=== PATIENT | male | born 1990 | race Caucasian/White ===

== ENCOUNTER 2022-02-24 18:45 | Inpatient (IN) | payer MEDICAID, SELFPAY ==
[2022-02-24 18:48] VITALS: BP 135/87; PULSE 87; RESP 16; TEMP 36.1; O2SAT 100; BMI 25.6
--- NOTE | 2022-02-24 19:08 | EDS_ITS ---
HPI History of Present Illness Chief Complaint: Substance Abuse Informant: patient Narrative Narrative: 31-year-old male presenting to the emergency room requesting detox from heroin. Patient is a daily snorer. Between him and his significant other use about a gram a day. He has been using for about the past 6 months and before that was previously clean for 6 months. He states that he has no pending legal issues and is trying to get his life in order including get into his old job back but he needs to be sober. He states that he has been working with an outpatient clinic but whenever he tries to fully get off of heroin he develops abdominal pain makes him feel constipated and makes him use again. [facility] Medical History (Updated 02/24/22 @ 19:[address] Hussain Watters DO) Heroin addiction Home Medications buprenorphine-naloxone [Suboxone] 1.5 tab SUBLINGUAL DAILY 02/24/22 [History Last Taken Unknown] gabapentin 800 mg PO BID 02/24/22 [History Last Taken Unknown] Allergy/AdvReac Type Severity Reaction Status Date / Time No Known Allergies Allergy Verified 02/24/22 18:46 no surgical history Social History (Updated 02/24/22 @ 19:[address] Hussain Watters DO) current gender identity: male substance use type: heroin ROS ROS ED Constitutional Constitutional ED: Denies chills, fever(s) or weight loss Eyes Eyes: Denies change in vision or diplopia ENT ENT ED: Denies ear pain, rhinorrhea or sore throat Cardiovascular Cardiovascular: Denies chest pain, orthopnea, palpitations or racing heartbeat Respiratory/Chest Respiratory/Chest: Denies cough, dyspnea or orthopnea Gastrointestinal Gastrointestinal: Reports abdominal pain; Denies diarrhea, nausea or vomiting Genitourinary Genitourinary ED: Denies dysuria, hematuria or urinary frequency Musculoskeletal Musculoskeletal: Denies arthralgias or myalgias Integumentary Denies abscess or rash Neurologic Neurologic: Denies headache(s) or weakness Psychiatric Psychiatric: Denies anxiety, depression, suicidal ideation or suicidal thoughts Endocrine Endocrinology: Denies polydipsia, polyphagia or polyuria Allergic/Immunologic Allergic/Immunologic ED: Denies mouth swelling, tongue swelling or urticaria EXAM Physical Exam Const Vital Signs: 02/24/22 18:48 Temperature 97.0 F L Temperature Source Temporal Pulse Rate 87 Respiratory Rate 16 Blood Pressure 135/87 H Blood Pressure Mean 103 Pulse Ox 100 Oxygen Delivery Method Room Air Positive well nourished and well developed General Appearance ED: well developed HEENT Reports normocephalic, head/scalp atraumatic, TM's clear and moist mucous membranes Negative for trauma Tympanic Membrane ED: Yes TM's clear Eyes PERRL and EOMs intact bilaterally Neck no lymphadenopathy, supple and no JVD Resp normal respiratory effort and clear to auscultation bilaterally Cardio regular rate, regular rhythm and no murmurs GI normal to inspection, nondistended, normoactive bowel sounds and non-tender Palpation: soft Back/Spine no CVA tenderness and normal ROM Extremity normal to inspection General Extremety ED: Negative for edema General Extremity: Negative for edema Neuro oriented x3 and CN's II-XII intact bilaterally Sensorium / Orientation: alert Motor Exam: strength 5/5 throughout Psych mental status grossly normal Mood & Affect: Negative for depressed or tearful Skin no rashes or lesions noted and no wounds MDM MDM MDM Narrative Medical decision making narrative: Patient will be medically screened and if agreeable to the rules of the program he will be admitted. Discharge Plan Triage Chief Complaint: Substance Abuse ED Provider: Hussain Watters Dx/Rx/DC Orders Clinical Impression: Heroin withdrawal Prescriptions: No Action gabapentin 800 mg Tablet 800 mg PO BID RF: 0 buprenorphine-naloxone [Suboxone] 8-2 mg Tablet, Sublingual 1.5 tab SUBLINGUAL DAILY RF: 0 Primary Care Provider: NOT,DEFINED Referrals: NOT,DEFINED [Primary Care Provider] - Disposition Disposition: Acute Care Hospital [facility]
--- NOTE | 2022-02-24 19:13 | PCM.HP.STD ---
Documented by User: DOT Bejarano 02/24/22 19:23 HPI - General General Date of Admission: 02/24/22 Date of Service: 02/24/22 Chief Complaint: Substance abuse HPI Narrative AUTUMN LOPEZ, is a 31 M who presents with desire for detoxification from heroin. Patient states that he uses 1 g of heroin daily and last time of use was at 9 AM this a.m. patient also reports that he smokes 1 pack/day of cigarettes. Patient denies other substance abuse and alcohol use. Patient denies any medical history however he was placed on gabapentin due to body aches following his last attempted detox as well as Suboxone. Patient states that he is currently experiencing abdominal pain as well as mild nausea. Patient denies vomiting. [facility] Medical History Heroin addiction Home Medications buprenorphine-naloxone [Suboxone] 1.5 tab SUBLINGUAL DAILY 02/24/22 [History Last Taken Unknown] gabapentin 800 mg PO BID 02/24/22 [History Last Taken Unknown] Allergy/AdvReac Type Severity Reaction Status Date / Time No Known Allergies Allergy Verified 02/24/22 18:46 Family History Father Alcoholism no significant family history (Patient denies any relevant medical history in his parents or siblings.) Surgical History no surgical history Social History (Updated 02/24/22 @ 19:16 by DOT Bejarano) household members: significant other current gender identity: male Smoking Status: Current every day smoker tobacco type: cigarettes Smoking packs per day: 1 Smoking cigarettes per day: 20.0 alcohol intake: never substance use type: heroin and other details: Uses 1 gm daily heroin, snorts. Also using suboxone. ROS Constitutional Constitutional: Reports malaise; Denies anorexia, chills, fatigue, fever(s) or weakness Cardiovascular Cardiovascular: Denies chest pain, edema, palpitations or syncope Respiratory/Chest Respiratory/Chest: Denies cough, shortness of breath at rest, shortness of breath with exertion or wheezing Gastrointestinal Gastrointestinal: Reports abdominal pain, constipation and nausea; Denies diarrhea or vomiting Genitourinary Genitourinary: Denies dysuria Musculoskeletal Musculoskeletal: Denies back pain, extremity pain, joint pain or joint stiffness Integumentary Integumentary: Denies dry skin Neurologic Neurologic: Denies abnormal gait, abnormal speech, confusion or dizziness Psychiatric Psychiatric: Denies anxiety or depression Endocrine Endocrinology: Denies change in body appearance Hematologic/Lymphatic Hematologic/Lymphatic: Denies anemia, easy bleeding or easy bruising Vital Signs Vital Signs Vital Signs: 02/24/22 18:48 Temperature 97.0 F L Temperature Source Temporal Pulse Rate 87 Respiratory Rate 16 Blood Pressure 135/87 H Blood Pressure Mean 103 Pulse Ox 100 Oxygen Delivery Method Room Air Weight Weight: 188 lb 14.978 oz Body Mass Index (BMI) 25.6 Physical Exam Const alert, oriented x3 and no apparent distress General Appearance: cooperative HEENT normocephalic and head/scalp atraumatic Eyes conjunctivae normal and no scleral icterus Neck no lymphadenopathy and supple General: trachea midline Resp normal respiratory effort, normal air movement and clear to auscultation bilaterally Cardio regular rate, regular rhythm, S1 normal heart sound and S2 normal heart sound GI normal to inspection, nondistended, normoactive bowel sounds and soft to palpation Palpation: tender Extremity normal capillary refill and no clubbing, cyanosis or edema General Extremity: no tenderness to palpation of joints or extremities Skin General Skin Exam: no breakdown and turgor normal Lesions: no lesions Rashes: no rashes Neuro no focal motor deficits and no sensory deficits noted Motor Exam: Negative for general weakness Psych thought process normal, cooperative and affect normal Appearance: appropriate Assessment & Plan Assessment/Plan (1) Heroin withdrawal: (2) Desire for detoxification: (3) Tobacco abuse: PLAN: 1. Desire for detoxification from heroin -Admit to MedSur -Buprenorphine taper ordered along with supportive medications per protocol -Continue patient's gabapentin throughout withdrawal period -LR 125 mL per x1 bag -Hepatitis panel and HIV panel ordered -CINA per protocol -CBC, CMP, UDS, alcohol pending serum -Case management consulted for coordination with 180 -Vital signs per protocol currently stable 2. Tobacco use -NicoDerm patch ordered -Inpatient smoking cessation ordered DVT prophylaxis-not indicated This patient was seen by Lesley aGlindo NP-C under the supervision of Dr. Campo. 28 minutes spent in clinical coordination of patient's plan of care. Documented by User: Dr. Lorenza Campo MD 02/24/22 19:27 HPI - General General Date of Admission: 02/24/22 [facility] Medical History Heroin addiction Home Medications buprenorphine-naloxone [Suboxone] 1.5 tab SUBLINGUAL DAILY 02/24/22 [History Last Taken Unknown] gabapentin 800 mg PO BID 02/24/22 [History Last Taken Unknown] Allergy/AdvReac Type Severity Reaction Status Date / Time No Known Allergies Allergy Verified 02/24/22 18:46 Family History Father Alcoholism Surgical History no surgical history Social History (Updated 02/24/22 @ 19:16 by Lesley Galindo NP-C) household members: significant other current gender identity: male Smoking Status: Current every day smoker tobacco type: cigarettes Smoking packs per day: 1 Smoking cigarettes per day: 20.0 alcohol intake: never substance use type: heroin and other details: Uses 1 gm daily heroin, snorts. Also using suboxone.
[2022-02-24 19:43] VITALS: BP 130/82; PULSE 70; RESP 22; TEMP 36.6; O2SAT 98; BMI 24.5
[2022-02-24 19:44] LABS: Absolute Lymphocyte Count 2.19 X10^3/uL (0.83-4.51); Absolute Neutrophil Count 4.7 X10^3/uL (2.0-7.7); Basophil# 0.06 X10^3/uL; Basophil% 0.7 % (0-1); Eosinophil# 0.57 X10^3/uL; Eosinophils% 6.9 % (0-5); Hematocrit 44.9 % (40-54); Hemoglobin 14.7 g/dL (13.0-16.5); Lymphocyte # 2.19 X10^3/ul (0.83-4.51); Lymphocyte % 26.4 % (19-41); Mean Corp Hgb Conc 32.7 g/dL (32-36); Mean Corpuscular Hgb 31.1 pg (27.0-32.0); Mean Corpuscular Volume 95.1 fL (80-94); Mean Platelet Vol. 9.7 fl (6.2-12.0); Monocyte# 0.73 X10^3/uL; Monocyte% 8.8 % (0-10); NRBC Flagged by Analyzer 0 % (0-5); Neutrophil # 4.73 X10^3/uL (2.7-7.7); Neutrophil % 56.8 % (47-70); Platelet Count 206 K/mm3 (150-450); RBC Distribution Width CV 12.8 % (11.6-14.6); Red Blood Count 4.72 M/mm3 (4.6-6.2); White Blood Count 8.3 K/mm3 (4.4-11.0)
[2022-02-24 19:55] LABS: Alcohol, Blood (Medical)-Serum < 3.0 mg/dL
[2022-02-24 20:01] LABS: ALB/GLOB Ratio 1.3 RATIO (0.9-2.4); AST(SGOT) 16 U/L (15-37); Alanine Aminotransfer ALT/SGPT 31 U/L (16-61); Albumin, Serum 4.2 g/dL (3.2-5.0); Alkaline Phosphatase 83 U/L (45-117); Anion Gap 4 (5-15); BUN 10 mg/dL (7-18); BUN/Creat Ratio 10.8 RATIO (10-20); Calcium,Total 8.6 mg/dL (8.5-10.1); Chloride 102 mmol/L (98-107); Creatinine, Serum 0.93 mg/dL (0.70-1.30); EST Glomerular Filtration Rate 100 mL/min (>60); Est Glom Filt Rate - Afr Amer 121 mL/min (>60); Globulin 3.2 g/dL (2.2-4.2); Glucose 131 mg/dL (74-106); Potassium 3.6 mmol/L (3.5-5.1); Protein, Total 7.4 g/dL (6.4-8.2); Sodium Level 137 mmol/L (136-145)
[2022-02-24 20:05] LABS: Amphetamine Urine VISTA NEGATIVE (<1000 ng/mL); Barbiturate Urine VISTA NEGATIVE (< 200 ng/mL); Benzodiazepine Urine VISTA NEGATIVE (< 200 ng/mL); Cocaine Urine VISTA NEGATIVE (< 300 ng/mL); Ecstacy Urine VISTA POSITIVE (< 500 ng/mL); Methadone Urine VISTA NEGATIVE (< 300 ng/mL); PCP Urine VISTA NEGATIVE (< 25 ng/mL); THC Urine VISTA NEGATIVE (< 50 ng/mL); Vista UDS pH Range 5
[2022-02-24] MEDS: Senna Tablet 2 TABLET PO (20:21)
[2022-02-24] MEDS: Methocarbamol 750 MG Tablet 1500 MG PO (20:21)
[2022-02-24] MEDS: hydrOXYzine PAM 25 MG Capsule 50 MG PO (20:21)
[2022-02-24] MEDS: Dicyclomine 10 MG Capsule 20 MG PO (20:21)
[2022-02-24 20:23] VITALS: BP 129/78; PULSE 94; RESP 16; TEMP 37; O2SAT 97
[2022-02-24] MEDS: Lactated Ringers 1,000 ML 125 ML IV (20:43)
[2022-02-24 21:55] VITALS: O2SAT 98
[2022-02-24 22:30] VITALS: BP 121/81; PULSE 79; RESP 16; TEMP 36.6; O2SAT 97
[2022-02-24] MEDS: Gabapentin 800 MG Tablet PO (22:37)
[2022-02-25 02:45] VITALS: BP 110/69; PULSE 69; RESP 18; TEMP 36.6; O2SAT 94
[2022-02-25 09:00] VITALS: BP 119/71; PULSE 98; RESP 18; TEMP 36.6; O2SAT 98
--- NOTE | 2022-02-25 09:07 | PN.HOSP_ITS ---
Subjective Subjective Feels ok right now. Objective Data Objective Data Vital Signs: Vital Signs Temp Pulse Resp BP Pulse Ox 36.6 C 69 18 110/69 94 02/25/22 02:45 02/25/22 02:45 02/25/22 02:45 02/25/22 02:45 02/25/22 02:45 Oxygen Delivery Method Room Air Weight: 82.4 kg Body Mass Index (BMI) 24.5 Intake & Output: Intake and Output for Last 24 Hours 02/23/22 02/24/22 02/25/22 23:59 23:59 23:59 Output Total 0 / 0 Balance 0 / 0 Lab / Micro Data Result Diagrams: 02/24/22 19:25 02/24/22 19:25 Labs: Laboratory Results - last 24 hr 02/24/22 19:25: WBC 8.3, RBC 4.72, Hgb 14.7, Hct 44.9, MCV 95.1 H, MCH 31.1, MCHC 32.7, RDW Std Deviation 45.0 H, RDW Coeff of Clemencia 12.8, Plt Count 206, MPV 9.7, Immature Gran % (Auto) 0.400, Neut % (Auto) 56.8, Lymph % (Auto) 26.4, Robertson % (Auto) 8.8, Eos % (Auto) 6.9 H, Baso % (Auto) 0.7, Absolute Neuts (auto) 4.7, Absolute Lymphs (auto) 2.19, Nucleated RBC % 0 02/24/22 19:25: Sodium 137, Potassium 3.6, Chloride 102, Carbon Dioxide 31.0, Anion Gap 4 L, BUN 10, Creatinine 0.93, Estim Creat Clear Calc 124.00, Est GFR (MDRD) Af Amer 121, Est GFR (MDRD) Non-Af 100, BUN/Creatinine Ratio 10.8, Glucose 131 H, Calcium 8.6, Total Bilirubin 0.40, AST 16, ALT 31, Alkaline Phosphatase 83, Total Protein 7.4, Albumin 4.2, Globulin 3.2, Albumin/Globulin Ratio 1.3 02/24/22 19:25: Ethyl Alcohol < 3.0 02/24/22 19:25: Urine Opiates Screen NEGATIVE, Urine Methadone Screen NEGATIVE, Ur Barbiturates Screen NEGATIVE, Ur Phencyclidine Scrn NEGATIVE, Ur Amphetamines Screen NEGATIVE, MDMA (Ecstasy) Screen POSITIVE H, U Benzodiazepines Scrn NEGATIVE, Urine Cocaine Screen NEGATIVE, U Cannabinoids Screen NEGATIVE, Ur Drug Screen Comment Physical Exam Const alert and no apparent distress HEENT head/scalp atraumatic Head and Scalp: normocephalic Psych affect normal Assessment & Plan Assessment/Plan (1) Heroin withdrawal: PLAN: 1. acute opiate withdrawal * use heroin * continue buprenorphine as well as other agents to help with other somatic withdrawal symptoms. * Addiction med to assist with establishing outpt program. 2. Tobacco abuse * nicotine patch Charges/Coding Visit Charges Inpatient E&M: 71295 Subs Hosp L1
[2022-02-25 09:10] VITALS: O2SAT 95
[2022-02-25 09:14] LABS: HIV - WCH Non-Reactive (Nonreactive)
[2022-02-25] MEDS: Gabapentin 800 MG Tablet PO ×2 (09:37→22:40)
[2022-02-25] MEDS: Dicyclomine 10 MG Capsule 20 MG PO ×3 (09:42→22:41)
[2022-02-25 15:00] VITALS: BP 125/68; PULSE 85; RESP 18; TEMP 36.6; O2SAT 97
[2022-02-25] MEDS: Buprenorphine HCl 2 MG TAB.SUBL SL ×2 (15:30→22:41)
[2022-02-25] MEDS: Methocarbamol 750 MG Tablet 1500 MG PO ×2 (16:57→22:42)
[2022-02-25] MEDS: hydrOXYzine PAM 25 MG Capsule 50 MG PO ×2 (17:01→22:42)
[2022-02-25] MEDS: Acetaminophen 325 MG Tablet 650 MG PO (18:51)
[2022-02-25] MEDS: cloNIDine HCl 0.1 MG Tablet PO (18:51)
[2022-02-25] MEDS: Gabapentin 300 MG Capsule PO (18:51)
[2022-02-25 22:15] VITALS: BP 131/101; PULSE 67; RESP 18; TEMP 36.6; O2SAT 97
[2022-02-25] MEDS: Ibuprofen 600 MG Tablet PO (22:40)
[2022-02-25] MEDS: traZODone 100 MG Tablet PO (22:42)
[2022-02-26] MEDS: cloNIDine HCl 0.1 MG Tablet PO (03:54)
[2022-02-26] MEDS: Ondansetron 8 MG Tablet PO ×2 (03:54→15:24)
[2022-02-26] MEDS: Acetaminophen 325 MG Tablet 650 MG PO (03:54)
[2022-02-26] MEDS: Gabapentin 300 MG Capsule PO (03:54)
[2022-02-26] MEDS: 0.9% Saline Lock 10 ML Syringe IV (03:57)
--- NOTE | 2022-02-26 07:32 | PN.HOSP_ITS ---
Subjective Subjective Seen and examined. Patient admitted for acute heroin withdrawal syndrome. He denies needle use and he says he smokes heroin and occasionally crack cocaine. Objective Data Objective Data Vital Signs: Vital Signs Temp Pulse Resp BP Pulse Ox 98 F 67 18 131/101 H 97 02/25/22 22:15 02/25/22 22:15 02/25/22 22:15 02/25/22 22:15 02/25/22 22:15 Oxygen Delivery Method Room Air Weight: 181 lb 10.574 oz Body Mass Index (BMI) 24.5 Intake & Output: Intake and Output for Last 24 Hours 02/24/22 02/25/22 02/26/22 23:59 23:59 23:59 Intake Total 760 / 760 Output Total 0 / 0 Balance 760 / 760 Lab / Micro Data Result Diagrams: 02/24/22 19:25 02/24/22 19:25 Labs: Laboratory Results - last 24 hr 02/25/22 04:56: HIV 1&2 Antibody Non-Reactive Physical Exam Narrative General: Alert, Oriented x3, Cooperative HEENT: Atraumatic, PERRLA, EOMI, Normocephalic Oral: No Gingival or Mucosal Lesions/ Ulcerations Neck: Supple, No JVD, Negative Carotid Bruits Lungs: Air entry diminished in bilateral lung bases. No crepitation/rhonchi Cardiovascular: Regular rate, Regular Rhythm, Normal S1, Normal S2, No murmurs Abdomen: Bowel Sounds Present, Soft, Non Tender, Non-Distended : No renal angle tenderness. No suprapubic tenderness. Extremities: No edema, Capillary Refill Less than 3 Seconds Skin: No rashes, No breakdown Musculoskeletal: No Tenderness to Palpation of Joints or Extremities Neurological: Cranial nerves II-XII grossly intact, DTR 2+/4 and Symmetrical, Neuro grossly intact Psych/Mental Status: Flat affect. No delusion or hallucination. Assessment & Plan Assessment/Plan (1) Heroin withdrawal: PLAN: The patient is being admitted for acute heroin withdrawal syndrome. 1. acute opiate withdrawal syndrome with history of chronic heroin/opioid use, dependence and tolerance: Patient is being admitted on MedSurg floor. On buprenorphine and related to medications for psychological and physical withdrawal symptoms. records and information manager 180 consulted. 2. Chronic tobacco abuse dependence: Nicotine 3. Chronic intermittent cocaine use and dependence: No withdrawal symptoms Charges/Coding Visit Charges Inpatient E&M: 88935 Subs Hosp L2
[2022-02-26] MEDS: Buprenorphine HCl 2 MG TAB.SUBL SL ×2 (07:54→15:24)
[2022-02-26] MEDS: Dicyclomine 10 MG Capsule 20 MG PO ×2 (07:55→15:24)
[2022-02-26] MEDS: Ibuprofen 600 MG Tablet PO (07:55)
[2022-02-26] MEDS: hydrOXYzine PAM 25 MG Capsule 50 MG PO ×2 (07:56→15:24)
[2022-02-26] MEDS: Methocarbamol 750 MG Tablet 1500 MG PO ×2 (07:56→15:24)
[2022-02-26 11:13] VITALS: BP 126/78; PULSE 69; RESP 16; TEMP 36.6; O2SAT 98
[2022-02-26] MEDS: Gabapentin 800 MG Tablet PO (11:20)
--- NOTE | 2022-02-26 12:14 | ADDICTION ---
This internal communications writer met with PT to conduct ASAM, MSE, AUDIT, DUDIT assessments and to plan for d/c. PT A+Ox4 and participated actively. All assessments completed and placed in PT's chart. PT plans to f/u with [facility] for follow-up treatment services. PT did not indicate a need for transportation post d/c from [facility]. PT will need proof of completion upon discharge.
[2022-02-26 15:22] VITALS: BP 135/86; PULSE 84; RESP 18; TEMP 36.6; O2SAT 98
--- NOTE | 2022-02-26 18:46 | DS.PCM_ITS ---
Providers Date of Admission: 02/24/22 Date of Discharge: 02/26/22 Primary Care Physician: Millie Primary Care Phys Reason For Visit: ACUTE OPIATE WITHDRAWL Diagnosis Discharge Diagnosis (1) Heroin withdrawal: Status: Acute Code(s): F11.23 - Opioid dependence with withdrawal Medications at Discharge Home Medications buprenorphine-naloxone [Suboxone] 1.5 tab SUBLINGUAL DAILY 02/24/22 gabapentin 800 mg PO BID 02/24/22 Hospital Course Summary of Care Provided Hospital Course: The patient was admitted for acute heroin withdrawal syndrome. 1. acute opiate withdrawal syndrome with history of chronic heroin/opioid use, dependence and tolerance: Patient is being admitted on MedSur floor. On buprenorphine and related to medications for psychological and physical withdrawal symptoms. java project manager 180 consulted. Patient signed AMA. Risk explained but patient is nonadherent to noncompliant and signed AMA. 2. Chronic tobacco abuse dependence: Nicotine 3. Chronic intermittent cocaine use and dependence: No withdrawal symptoms Follow-up [address] Piña, digital marketing specialist. Physical Exam Narrative Patient signed AMA on 02/26. Please see the physical exam findings on the progress note of the same date. Weight / BMI Weight Weight: 181 lb 10.574 oz Body Mass Index (BMI) 24.5 ABG / Lab / Microbiology Data Result Diagrams: 02/24/22 19:25 02/24/22 19:25 Laboratory: Laboratory Results - last 24 hr 02/25/22 13:35: Hep Bs Antigen Negative, Hep Bs Antibody Reactive, Hep B Core Total Ab Negative, Hepatitis C Antibody <0.1, Hep C Ab Comment Comment Meaningful Use Info Meaningful Use Diagnoses (Choose all that apply): None applicable Discharge Plan Admission Admit Date/Time: 02/24/22 19:11 Attending Provider: Florin Graves Primary Care Provider: Care Physician,Millie Primary Discharge Orders/Prescriptions Prescriptions: No Action gabapentin 800 mg Tablet 800 mg PO BID RF: 0 buprenorphine-naloxone [Suboxone] 8-2 mg Tablet, Sublingual 1.5 tab SUBLINGUAL DAILY RF: 0 Referrals / Follow Up: Care Physician,No Primary [Primary Care Provider] - NOT,DEFINED [NON-STAFF] - Disposition Disposition (needs filled in before D/C Order can be placed): Against Medical Advice Charges/Coding Addendum Addendum: Please cancel the billing charge of progress note of the same date. Visit Charges Inpatient E&M: 49748 Disch Hosp
[2022-02-27 08:10] LABS: HEPATITIS B SURFACE AG Negative (Negative); Hepatitis B Core Ab Total Negative (Negative); Hepatitis C Ab <0.1 s/co ratio (0.0-0.9)
[2022-02-27 10:28] LABS: Hep B Surface Antibodies Reactive (.)
== END 2022-02-26 16:57 | disposition left against medical advice (07) | DRG 770 ==
LOC: ED 19:22 → MS3 19:23
PROVIDERS: Admitting Provider Family Medicine; Emergency Provider Emergency Medicine; Visit Provider Internal Medicine
DX: F11.23 Opioid dependence with withdrawal (principal); F14.99 Cocaine use, unspecified with unspecified cocaine-induced disorder; F17.210 Nicotine dependence, cigarettes, uncomplicated; Z86.19 Personal history of other infectious and parasitic diseases
CPT/HCPCS: 36415; 80053; 80307; 82077; 85025; 86703; 86704; 86705; 86706; 86707; 86803; 87340; 87350; 99283; 99406; J7120; A4216